=== PATIENT | male | born 1975 | race Hispanic/Latino ===

== ENCOUNTER 2017-10-23 08:04 | Outpatient (CLI) | payer BC | END 2017-10-23 08:05 | disposition home or self-care (01) | LOC: DTY/OP 08:04 | PROVIDERS: ATTEND Surgery | DX: E66.01 Morbid (severe) obesity due to excess calories (principal) | CPT/HCPCS: 97802 ==

== ENCOUNTER 2022-12-06 07:41 | Outpatient (CLI) | payer BC | END 2022-12-06 07:42 | disposition home or self-care (01) | LOC: SCSMRI 07:41 | PROVIDERS: ATTEND Orthopaedic Surgery Hand Surgery | DX: M20.011 Mallet finger of right finger(s) (principal); M75.22 Bicipital tendinitis, left shoulder; S66.312A Strain of extensor muscle, fascia and tendon of right middle finger at wrist and hand level, initial encounter; R60.0 Localized edema; M19.041 Primary osteoarthritis, right hand ==